=== PATIENT | male | born 1965 | race Caucasian/White ===

== ENCOUNTER 2016-06-11 19:55 | Emergency (ER) | payer OTHER ==
[~2016-06-11] VITALS: Ht 177.8 cm; Wt 121.2 kg
[~2016-06-11 19:55] MED LIST: BACTRIM,SEPT1 TABLET PO; CARAFATE100 MG/ML PO; INDOCIN25 MG PO; INDOCIN50 MG PO; INDOMETHACIN50 MG PO; KEFLEX500 MG PO; MEDROL DOSEPAK4 MG PO; NEURONTIN100 MG PO; NOHOMEMEDS; NORCO 10/3251 TABLET PO; PEPCID40 MG PO; PERCOCET 5/31 TABLET PO; PREDNISONE20 MG PO; ZOFRAN4 MG PO
[2016-06-11 20:47] LABS: ADD MIUA? NO; BILIRUBIN NEGATIVE; BLOOD NEGATIVE; COLOR YELLOW ((YELLOW)); GLUCOSE (STRIP) NEGATIVE; KETONES NEGATIVE; LEUKOCYTES NEGATIVE; NITRITE NEGATIVE; PROTEIN (STRIP) NEGATIVE; SPECIFIC GRAVITY 1.015 (1.000-1.030); UCUL ADDED? NO; UROBILINOGEN 0.2 MG/DL (0.2-1.0)
[2016-06-11 21:06] LABS: HEMATOCRIT 44.4 % (38.0-50.0); MCHC 33.1 G/DL (30.0-36.0); MCV 93.7 FL (86-99); MEAN PLAT.VOLUME 11.3 uM^3 (9.0-12.4); PLATELET COUNT 121 K/uL (156-360); RBC DIS.WIDTH-CV 13.9 % (11.8-14.6); RBC DIS.WIDTH-SD 47.9 % (39-53); RED BLOOD COUNT 4.74 M/uL (4.00-5.50); WHITE BLOOD COUNT 7.5 K/uL (4.1-10.2)
[2016-06-11 21:46] LABS: CHLORIDE 105 mEq/L (99-109); POTASSIUM 4.5 mEq/L (3.7-5.4); SODIUM 142 mEq/L (136-147)
[2016-06-11 21:48] LABS: GLUCOSE 99 mg/dL (70-99)
[2016-06-11 21:49] LABS: ANION GAP 10 MEQ/L (2-14)
[2016-06-11 21:52] LABS: GFR ESTIMATE (CALCULATED) 38 mL/min/
[2016-06-11 21:53] LABS: UREA NITROGEN (BUN) 19 mg/dL (9-23)
[2016-06-11 21:54] LABS: LIPASE 37 U/L (1.0-51.0)
[2016-06-11 22:29] LABS: TOTAL BILIRUBIN 0.7 mg/dL (0.0-1.0)
[2016-06-11 22:30] LABS: ALKALINE PHOSPHATASE 59 IU/L (3-129)
[2016-06-11 22:33] LABS: DIRECT BILIRUBIN 0.2 mg/dL (0.0-0.3)
[2016-06-11] MEDS ORDERED: NORCO 5/3251 TABLET PO (23:04)
[2016-06-11] MEDS ORDERED: ZOFRAN ODT4 MG PO (23:04)
[2016-06-11 23:48] VITALS: BP 131/87
== END 2016-06-11 23:54 | disposition home or self-care (01) ==
LOC: EME 19:55 → RME 19:55
DX: N20.0 Calculus of kidney (principal)
CPT/HCPCS: 74176; 80048; 80076; 81003; 83690; 85027; 99281; 99285; J1885; J2270; J2405; J3010; J7030

== ENCOUNTER 2016-06-17 03:57 | Emergency (ER) | payer OTHER ==
[~2016-06-17] VITALS: Ht 177.8 cm; Wt 118.6 kg
[~2016-06-17 03:57] MED LIST changes: +NORCO 5/3251 TABLET PO; +ZOFRAN ODT4 MG PO
[2016-06-17] MEDS ORDERED: PREDNISONE20 MG PO (04:21)
[2016-06-17] MEDS ORDERED: MIRALAX255 GM PO (04:21)
[2016-06-17] MEDS ORDERED: DOXYCYCLINE HY100 MG PO (04:21)
[2016-06-17 04:35] VITALS: BP 129/83
== END 2016-06-17 04:35 | disposition home or self-care (01) ==
LOC: EME 03:57
DX: M70.22 Olecranon bursitis, left elbow (principal)
CPT/HCPCS: 99281; 99283; J7512

== ENCOUNTER 2017-08-17 08:32 | Emergency (ER) | payer OTHER ==
[~2017-08-17] VITALS: Ht 177.8 cm; Wt 118.3 kg
[~2017-08-17 08:32] MED LIST changes: +DOXYCYCLINE HY100 MG PO; +MIRALAX255 GM PO
[2017-08-17] MEDS ORDERED: BACTRIM,SEPT1 TABLET PO (11:21)
[2017-08-17 11:48] VITALS: BP 107/75
== END 2017-08-17 12:29 | disposition home or self-care (01) ==
LOC: EME 08:32
PROC: 0H9MXZZ Drainage of Right Foot Skin, External Approach (ICD-10-PCS; principal; 2017-08-17)
DX: M70.21 Olecranon bursitis, right elbow (principal); L03.031 Cellulitis of right toe
CPT/HCPCS: 73080; 99281; 99284